=== PATIENT | female | born 1980 | race Caucasian/White ===

== ENCOUNTER 2017-03-10 23:07 | Emergency (ER) | payer OTHER, MEDICAID ==
[2017-03-10 23:08] VITALS: BMI 31.6
[2017-03-10 23:49] VITALS: O2SAT 100
[2017-03-11] MEDS ORDERED: Sodium Chloride 0.9% 1,000 ML IV ONE (00:19)
[2017-03-11 00:25] LABS: BASO # 0.1 K/uL (0.0-0.2); BASO % 0.9 % (0.0-2.0); EOS # 0.3 K/uL (0.0-0.7); EOS % 2.9 % (0.0-4.0); HEMATOCRIT 31.8 % (34.0-47.0); LYMPH # 3.3 K/uL (1.0-4.3); LYMPH % 37.3 % (20.0-40.0); MEAN CORPUSCULAR HEMOGLOBIN 24.8 pg (27.0-31.0); MEAN CORPUSCULAR HGB CONC 31.3 g/dL (33.0-37.0); MONO # 0.7 K/uL (0.0-0.8); MONO % 8.3 % (0.0-10.0); RED CELL DISTRIBUTION WIDTH 15.3 % (11.5-14.5); WHITE BLOOD COUNT 8.7 K/uL (4.8-10.8)
[2017-03-11] MEDS ORDERED: Sodium Chloride 0.9% 1,000 ML ONE (00:30)
[2017-03-11 00:31] LABS: RBC URINE 1 /hpf (0-3); URINE BACTERIA MOD (<OCC); URINE BILIRUBIN NEGATIVE (NEGATIVE); URINE BLOOD 1+ (NEGATIVE); URINE COLOR Yellow (YELLOW); URINE GLUCOSE (UA) NORMAL (Normal); URINE KETONE NEGATIVE (NEGATIVE); URINE LEUKOCYTE ESTERASE NEG Leu/uL (Negative); URINE PROTEIN NEGATIVE (NEGATIVE); URINE UROBILINOGEN NORMAL mg/dL (0.2-1.0); WBC URINE < 1 /hpf (0-5)
[2017-03-11 00:35] LABS: CHLORIDE 99 mmol/L (98-107); SODIUM 136 mmol/L (132-148)
[2017-03-11 00:36] LABS: POTASSIUM 3.5 mmol/L (3.6-5.2)
[2017-03-11 00:38] LABS: ALB/GLOB RATIO 1.4 (1.0-2.1); ALKALINE PHOSPHATASE 88 U/L (38-126); ALT/SGPT 18 U/L (9-52); AST/SGOT 32 U/L (14-36); BILIRUBIN,TOTAL 1.4 mg/dL (0.2-1.3); BLOOD UREA NITROGEN 11 mg/dL (7-17); CARBON DIOXIDE 27 mmol/L (22-30); GFR AFRICAN-AMERICAN > 60; GLUCOSE,RANDOM 89 mg/dL (65-105); TOTAL PROTEIN 7.7 g/dL (6.3-8.3)
[2017-03-11 00:39] LABS: CALCIUM 8.7 mg/dl (8.6-10.4)
--- NOTE | 2017-03-11 02:05 | C.PDOC ---
History Of Present Illness A 36 y/o female presents to the ER c/o abdominal of the RUQ for 3 days. Pt denies , nausea, vomiting, fever, chills, vaginal bleeding or discharge , or any other complaints. Pt notes a possible gallbladder problem and notes being refereed to a surgeon by her PMD. Chief Complaint (Nursing): Abdominal Pain History Per: Patient History/Exam Limitations: no limitations Onset/Duration Of Symptoms: Days Current Symptoms Are (Timing): Still Present Severity: Mild Location Of Pain/Discomfort: RUQ Recent travel outside of the [place]: No Additional History Per: Patient Abnormal Vaginal Bleeding: No Past Medical History Reviewed: Historical Data, Nursing Documentation, Vital Signs Vital Signs: Last Vital Signs Temp 98.0 F 03/10/17 23:46 Pulse 62 03/10/17 23:46 Resp 16 03/10/17 23:46 BP 120/66 03/10/17 23:46 Pulse Ox 100 03/11/17 02:16 - Medical History PMH: Asthma Surgical History: Appendectomy, Back Surgery (disk hernia) - [facility] Procedures BILAT TUBAL DIVISION NEC (11/26/14) LOW CERVICAL (11/26/14) Family History: States: Unknown Family Hx - Social History Hx Tobacco Use: No Hx Alcohol Use: No Hx Substance Use: No - Immunization History Hx Tetanus Toxoid Vaccination: No Hx Influenza Vaccination: No Hx Pneumococcal Vaccination: No Review Of Systems Except As Marked, All Systems Reviewed And Found Negative. Constitutional: Negative for: Fever, Chills Gastrointestinal: Positive for: Abdominal Pain (RUQ ). Negative for: Nausea, Vomiting Physical Exam - Physical Exam Appears: Non-toxic, No Acute Distress Skin: Warm, Dry Head: Atraumatic, Normacephalic Eye(s): bilateral: Normal Inspection Cardiovascular: Rhythm Regular, No Murmur Respiratory: Normal Breath Sounds, No Rales, No Rhonchi, No Wheezing Gastrointestinal/Abdominal: Soft, Tenderness (RUQ tenderness), No Guarding, No Rebound Neurological/Psych: Oriented x3, Normal Speech, Normal Cognition ED Course And Treatment - Laboratory Results Result Diagrams: 03/11/17 00:22 03/11/17 00:22 O2 Sat by Pulse Oximetry: 100 (RA) Pulse Ox Interpretation: Normal Medical Decision Making Medical Decision Making: Impression: 36 y/o c/o lower abdominal pain for 3 days Plans: -Toradol -IV fluids -US abd -Reassess and disposition Pt has a possible gallbladder problem. Patient is resting comfortably, abdomen remains soft, and patient is tolerating PO. Patient feels comfortable going home. Patient will be discharged home. Disposition Counseled Patient/Family Regarding: Diagnosis - Disposition Referrals: [facility] [Outside] Disposition: HOME/ ROUTINE Disposition Time: 02:55 Condition: STABLE Prescriptions: Famotidine [Pepcid] 20 mg PO BID #20 tab Phenobarb/Hyoscy/Atropine/Scop [ Tablet] 16.2 mg PO Q6 #10 tablet Instructions: Abdominal Pain (ED), Gastritis (GEN), Diet for Ulcers and Gastritis (GEN) Forms: Gen Discharge Inst Armenian Print Language: AUSTRIAN - POA Present On Arrival: None, Object Left In During Previous Surgery - Clinical Impression Clinical Impression: Abdominal pain, Gastritis and gastroduodenitis - Scribe Statement The provider has reviewed the documentation as recorded by the Scribe Erwin [email or web address] All medical record entries made by the Scribe were at my direction and personally dictated by me. I have reviewed the chart and agree that the record accurately reflects my personal performance of the history, physical exam, medical decision making, and the department course for this patient. I have also personally directed, reviewed, and agree with the discharge instructions and disposition.
[2017-03-11 03:05] VITALS: BP 131/73; PULSE 77; RESP 18; TEMP 97.8
--- NOTE | 2017-03-11 11:13 | US ---
HISTORY: abd pain COMPARISON: None. TECHNIQUE: Sonographic evaluation of the right upper quadrant of the abdomen. FINDINGS: LIVER: Measures 14.6 cm in length. Normal echogenicity of the liver parenchyma. No mass. No intrahepatic bile duct dilatation. GALLBLADDER: Unremarkable. No gallstones. COMMON BILE DUCT: Measures 3.3 mm. No stones. No dilatation. PANCREAS: Suboptimal and somewhat limited assessment of the pancreas due to overlying bowel gas. RIGHT KIDNEY: Measures 10.5 x 4.3 x 4.6 cm in length. Normal echogenicity. No calculus, mass, or hydronephrosis. AORTA: No aneurysmal dilatation. IVC: Unremarkable. OTHER FINDINGS: None . IMPRESSION: Limited assessment of the pancreas due to overlying bowel gas. No evidence of cholelithiasis or cholecystitis. Preliminary report was submitted by [facility].
== END 2017-03-11 03:08 | disposition home or self-care (01) ==
LOC: C.ER 23:07
DX: K29.71 Gastritis, unspecified, with bleeding (principal)
CPT/HCPCS: 76705; 80053; 81001; 83690; 84703; 85025; 96374; 99284; J1885; J7040